=== PATIENT | female | born 1965 | race Asian ===

== ENCOUNTER 2024-09-06 06:48 | Inpatient (IN) | payer MEDICARE ==
[2024-09-06] VITALS (28 sets, daily range): BP systolic 81–126; BP diastolic 59–97; TEMP 97.8–98.2; O2SAT 92–100
[~2024-09-06] VITALS: Ht 160 cm; Wt 65.6 kg
[2024-09-06] MEDS: IV NORMAL SALINE 500 ML BAG IV ONE ×2 (07:16→09:35)
[2024-09-06 07:29] LABS: BASOPHILS % (AUTO) 0.2 % (0.0-2.0); EOSINOPHILS # (AUTO) 0.1 K/uL (0.0-0.7); EOSINOPHILS % (AUTO) 1.3 % (0.0-7.0); HEMATOCRIT 28.3 % (31.2-41.9); HEMOGLOBIN 9.2 g/dL (10.9-14.3); LYMPHOCYTES # (AUTO) 0.6 K/uL (0.8-4.8); LYMPHOCYTES % (AUTO) 5.7 % (20.5-51.5); MEAN CORPUSCULAR HEMOGLOBIN 31.9 uug (24.7-32.8); MEAN CORPUSCULAR HGB CONC 33 g/dL (32.3-35.6); MEAN CORPUSCULAR VOLUME 98.2 fL (75.5-95.3); MONOCYTES # (AUTO) 0.8 K/uL (0.1-1.30); MONOCYTES % (AUTO) 7.4 % (0.0-11.0); NEUTROPHILS # (AUTO) 9.1 K/uL (1.8-8.9); NEUTROPHILS % (AUTO) 85.4 % (38.5-71.5); PLATELET COUNT (AUTO) 144 K/uL (179-408); RED BLOOD CELL COUNT(AUTO) 2.89 MIL/uL (3.63-4.92); RED CELL DISTRIBUTION WIDTH 21.2 % (12.3-17.7); WHITE BLOOD COUNT (AUTO) 10.7 K/uL (3.8-11.8)
[2024-09-06] MEDS ORDERED: HEPA500034 SQ (07:29)
[2024-09-06] MEDS ORDERED: MORPHINE 20MG/ML PO (07:29)
[2024-09-06] MEDS ORDERED: ACET-2154 PO (07:29)
[2024-09-06] MEDS ORDERED: PANT40TA49 PO (07:29)
[2024-09-06] MEDS ORDERED: METO-358 PO (07:29)
[2024-09-06] MEDS ORDERED: GABA-532 PO (07:29)
[2024-09-06] MEDS ORDERED: ZOFRAN ODT PO (07:29)
[2024-09-06] MEDS ORDERED: MIDO5TAB5 PO (07:29)
[2024-09-06 07:49] LABS: ALANINE AMINOTRANSFERASE 56 U/L (14-59); ALBUMIN 3.4 g/dL (3.4-5.0); ALKALINE PHOSPHATASE 248 U/L (50-136); ASPARTATE AMINOTRANSFERASE 62 U/L (15-37); BILIRUBIN,DIRECT 1.3 mg/dL (0.0-0.2); BILIRUBIN,TOTAL 1.9 mg/dL (0.2-1.0); CALCIUM 10.4 mg/dL (8.5-10.1); CARBON DIOXIDE 33 mmol/L (21-32); CHLORIDE 93 mmol/L (98-107); GLUCOSE 106 mg/dL (74-106); POTASSIUM 3.1 mmol/L (3.5-5.1); SODIUM SERUM 143 mmol/L (136-145); TOTAL PROTEIN, SERUM 9.5 g/dL (6.4-8.2); UREA NITROGEN, BLOOD 52 mg/dL (7-18)
[2024-09-06 07:51] LABS: DIFFERENTIAL COMMENT 1
[2024-09-06] MEDS ORDERED: VANCOMYCIN IV 200 ML ONE (08:08)
[2024-09-06] MEDS: VANCOMYCIN IV 1,000 MG in IV DEXTROSE 5% 250 ML IV ONE (08:31)
[2024-09-06] MEDS ORDERED: HEPA500034 SUBCUT (09:04)
[2024-09-06] MEDS ORDERED: NOREPINEPHRINE BITARTRATE 4 MG/4 ML VIAL IV ONE (09:13)
[2024-09-06] MEDS ORDERED: NOREPINEPHRINE 8MG/NS 250ML 250 ML IV ONE (09:14)
[2024-09-06] MEDS ORDERED: NOREPINEPHRINE BITARTRATE 32 MG in IV NORMAL SALINE 218 ML IV PRN (09:15)
[2024-09-06] MEDS: NOREPINEPHRINE BITARTRATE 32 MG in IV NORMAL SALINE 218 ML IV PRN (10:31)
[2024-09-06] MEDS: NOREPINEPHRINE 8MG/NS 250ML 250 ML IV STA (10:36)
[2024-09-06] MEDS: MIDODRINE HCL 5 MG TABLET PO SCH (13:00)
[2024-09-06] MEDS ORDERED: ONDANSETRON 4 MG/2 ML VIAL IV PRN (13:00)
[2024-09-06] MEDS ORDERED: ACETAMINOPHEN 325 MG TABLET-SA PATIENTS-PAIN ONLY PO PRN (13:00)
[2024-09-06] MEDS: ONDANSETRON 4 MG/2 ML VIAL ONE (13:23)
[2024-09-06] MEDS: ONDANSETRON 4 MG/2 ML VIAL IV PRN (13:37)
[2024-09-06] MEDS: POTASSIUM CHLORIDE 20 MEQ in IV D5/ 0.9% NACL 1,000 ML IV PRN (14:38)
[2024-09-06] MEDS: MORPHINE SULFATE 2 MG/1 ML DISP.SYRIN IV PRN (14:43)
[2024-09-06] MEDS ORDERED: VANCOMYCIN IV 500 MG in IV DEXTROSE 5% 100 ML IV PRN (14:45)
[2024-09-06] MEDS: NOREPINEPHRINE 8MG/NS 250ML 250 ML IV PRN (14:51)
[2024-09-06] MEDS: MEROPENEM 500 MG in IV NORMAL SALINE 50 ML IV SCH (15:16)
[2024-09-06 16:08] LABS: HIV-1 p24 ANTIGEN NON REACTIVE (NONREACTIVE); HIV-1/2 ANTIBODY NON REACTIVE (NONREACTIVE)
[2024-09-06] MEDS: GABAPENTIN 100 MG CAPSULE PO SCH (16:44)
[2024-09-06] MEDS ORDERED: METO-357 PO (16:51)
[2024-09-07] VITALS (32 sets, daily range): BP systolic 85–121; BP diastolic 57–87; TEMP 97.4–98.1; O2SAT 97–100
[2024-09-07] MEDS ORDERED: IV D5W-0.45% NS +20 KCL 0 ML IV ONE (05:25)
[2024-09-07] MEDS ORDERED: IV DEXTROSE 5%-0.9%NS+20MeqKCL 1,000 ML IV ONE (05:29)
[2024-09-07] MEDS: PANTOPRAZOLE SODIUM 40 MG TABLET.DR PO SCH (06:38)
[2024-09-07] MEDS ORDERED: REMEDY ESSENTIAL ZINC PASTE 113 GM TOP PRN (09:45)
[2024-09-07 10:00] LABS: BASOPHILS % (AUTO) 0.3 % (0.0-2.0); EOSINOPHILS # (AUTO) 0.3 K/uL (0.0-0.7); EOSINOPHILS % (AUTO) 2.8 % (0.0-7.0); HEMATOCRIT 26.4 % (31.2-41.9); HEMOGLOBIN 8.7 g/dL (10.9-14.3); LYMPHOCYTES # (AUTO) 0.9 K/uL (0.8-4.8); LYMPHOCYTES % (AUTO) 9.8 % (20.5-51.5); MEAN CORPUSCULAR HEMOGLOBIN 32.9 uug (24.7-32.8); MEAN CORPUSCULAR HGB CONC 33 g/dL (32.3-35.6); MEAN CORPUSCULAR VOLUME 100.1 fL (75.5-95.3); MONOCYTES # (AUTO) 0.9 K/uL (0.1-1.30); MONOCYTES % (AUTO) 9.2 % (0.0-11.0); NEUTROPHILS # (AUTO) 7.3 K/uL (1.8-8.9); NEUTROPHILS % (AUTO) 77.9 % (38.5-71.5); PLATELET COUNT (AUTO) 149 K/uL (179-408); RED BLOOD CELL COUNT(AUTO) 2.64 MIL/uL (3.63-4.92); RED CELL DISTRIBUTION WIDTH 21.3 % (12.3-17.7); WHITE BLOOD COUNT (AUTO) 9.4 K/uL (3.8-11.8)
[2024-09-07 10:02] LABS: DIFFERENTIAL COMMENT 1
[2024-09-07 10:19] LABS: CALCIUM 10.6 mg/dL (8.5-10.1); CREATININE 6.2 mg/dL (0.6-1.3); POTASSIUM 3.4 mmol/L (3.5-5.1)
[2024-09-07 10:44] LABS: ALBUMIN 2.9 g/dL (3.4-5.0); PHOSPHOROUS 7.7 mg/dL (2.5-4.9)
[2024-09-07 10:45] LABS: MAGNESIUM 2.1 mg/dL (1.8-2.4); TOTAL PROTEIN, SERUM 8.6 g/dL (6.4-8.2)
[2024-09-07] MEDS ORDERED: TPN/PPN PER PHARMACY IV PRN (12:30)
[2024-09-07] MEDS: PHENYLEPHRINE IV 100 MG in IV NORMAL SALINE 240 ML IV PRN (16:04)
[2024-09-07] MEDS ORDERED: [UNRECOGNIZED DRUG - OTHER] IV SCH (16:45)
[2024-09-07] MEDS ORDERED: MVI ADULT IV SCH (16:45)
[2024-09-07] MEDS: VANCOMYCIN IV 1,000 MG in IV DEXTROSE 5% 250 ML IV ONE (18:01)
[2024-09-07] MEDS: TPN BAG #1 IV ONE (18:02)
[2024-09-07] MEDS: REMEDY ESSENTIAL ZINC PASTE 113 GM TOP SCH (20:31)
[2024-09-07] MEDS: MEROPENEM 500 MG in IV NORMAL SALINE 50 ML IV SCH (20:31)
[2024-09-08] VITALS (55 sets, daily range): BP systolic 87–126; BP diastolic 62–88; TEMP 97.5–98.3; O2SAT 94–100
[2024-09-08 06:29] LABS: BASOPHILS % (AUTO) 0.3 % (0.0-2.0); EOSINOPHILS # (AUTO) 0.3 K/uL (0.0-0.7); EOSINOPHILS % (AUTO) 2.2 % (0.0-7.0); HEMATOCRIT 25.2 % (31.2-41.9); HEMOGLOBIN 8.3 g/dL (10.9-14.3); LYMPHOCYTES # (AUTO) 0.9 K/uL (0.8-4.8); LYMPHOCYTES % (AUTO) 8.2 % (20.5-51.5); MEAN CORPUSCULAR HEMOGLOBIN 32.5 uug (24.7-32.8); MEAN CORPUSCULAR HGB CONC 33 g/dL (32.3-35.6); MEAN CORPUSCULAR VOLUME 99.3 fL (75.5-95.3); NEUTROPHILS # (AUTO) 9.3 K/uL (1.8-8.9); NEUTROPHILS % (AUTO) 80.3 % (38.5-71.5); PLATELET COUNT (AUTO) 153 K/uL (179-408); RED BLOOD CELL COUNT(AUTO) 2.54 MIL/uL (3.63-4.92); RED CELL DISTRIBUTION WIDTH 20.4 % (12.3-17.7); WHITE BLOOD COUNT (AUTO) 11.5 K/uL (3.8-11.8)
[2024-09-08 06:42] LABS: CREATININE 3.8 mg/dL (0.6-1.3); POTASSIUM 2.9 mmol/L (3.5-5.1)
[2024-09-08 06:44] LABS: MAGNESIUM 1.5 mg/dL (1.8-2.4); PHOSPHOROUS 4.5 mg/dL (2.5-4.9)
[2024-09-08 07:11] LABS: DIFFERENTIAL COMMENT 1
[2024-09-08 08:06] LABS: HEPATITIS B CORE AB, TOTAL Negative (Negative); HEPATITIS B SURFACE AG Negative (Negative); HEPATITIS C VIRUS ANTIBODY Non Reactive (Non Reactive)
[2024-09-08] MEDS: TPN BAG #2 IV SCH (08:58)
[2024-09-08] MEDS: IV FAT EMULSIONS 20% 250 ML IV ONE (12:53)
[2024-09-08] MEDS: TPN BAG #3 IV SCH (23:23)
[2024-09-09] VITALS (60 sets, daily range): BP systolic 78–140; BP diastolic 55–93; TEMP 97.8–98.5; O2SAT 94–100
[2024-09-09 06:53] LABS: BASOPHILS # (AUTO) 0.1 K/UL (0.0-0.2); BASOPHILS % (AUTO) 0.6 % (0.0-2.0); DIFFERENTIAL COMMENT 0; EOSINOPHILS # (AUTO) 0.3 K/uL (0.0-0.7); EOSINOPHILS % (AUTO) 2.1 % (0.0-7.0); HEMATOCRIT 23.6 % (31.2-41.9); HEMOGLOBIN 8.1 g/dL (10.9-14.3); LYMPHOCYTES # (AUTO) 1.3 K/uL (0.8-4.8); LYMPHOCYTES % (AUTO) 9.8 % (20.5-51.5); MEAN CORPUSCULAR HGB CONC 34 g/dL (32.3-35.6); MEAN CORPUSCULAR VOLUME 98.9 fL (75.5-95.3); MONOCYTES % (AUTO) 7.5 % (0.0-11.0); NEUTROPHILS # (AUTO) 10.4 K/uL (1.8-8.9); PLATELET COUNT (AUTO) 149 K/uL (179-408); RED CELL DISTRIBUTION WIDTH 19.8 % (12.3-17.7); WHITE BLOOD COUNT (AUTO) 12.9 K/uL (3.8-11.8)
[2024-09-09 07:05] LABS: CALCIUM 9.3 mg/dL (8.5-10.1); CREATININE 5.4 mg/dL (0.6-1.3); MAGNESIUM 1.9 mg/dL (1.8-2.4); PHOSPHOROUS 4.1 mg/dL (2.5-4.9); POTASSIUM 3.5 mmol/L (3.5-5.1)
[2024-09-09 07:11] LABS: RED BLOOD CELL COUNT(AUTO) 2.38 MIL/uL (3.63-4.92)
[2024-09-09] MEDS: ALBUMIN HUMAN 25% 100 ML IV PRN (13:35)
[2024-09-09] MEDS: TPN BAG #4 IV SCH (14:17)
[2024-09-09] MEDS ORDERED: MEROPENEM 500MG/NS 50ML PB ***ER PYXIS ONLY IV ONE (21:08)
[2024-09-10] VITALS (65 sets, daily range): BP systolic 90–120; BP diastolic 67–93; TEMP 97.2–98.6; O2SAT 98–100
[2024-09-10] MEDS: TPN BAG #5 IV SCH (02:26)
[2024-09-10 05:14] LABS: BASOPHILS % (AUTO) 0.4 % (0.0-2.0); EOSINOPHILS # (AUTO) 0.2 K/uL (0.0-0.7); EOSINOPHILS % (AUTO) 1.3 % (0.0-7.0); HEMATOCRIT 25.1 % (31.2-41.9); HEMOGLOBIN 8.2 g/dL (10.9-14.3); LYMPHOCYTES % (AUTO) 8.3 % (20.5-51.5); MEAN CORPUSCULAR HEMOGLOBIN 32.3 uug (24.7-32.8); MEAN CORPUSCULAR HGB CONC 33 g/dL (32.3-35.6); MEAN CORPUSCULAR VOLUME 99.2 fL (75.5-95.3); MONOCYTES # (AUTO) 1.1 K/uL (0.1-1.30); MONOCYTES % (AUTO) 8.4 % (0.0-11.0); NEUTROPHILS # (AUTO) 10.2 K/uL (1.8-8.9); NEUTROPHILS % (AUTO) 81.6 % (38.5-71.5); PLATELET COUNT (AUTO) 154 K/uL (179-408); RED BLOOD CELL COUNT(AUTO) 2.53 MIL/uL (3.63-4.92); RED CELL DISTRIBUTION WIDTH 20.9 % (12.3-17.7); WHITE BLOOD COUNT (AUTO) 12.5 K/uL (3.8-11.8)
[2024-09-10 05:50] LABS: ALBUMIN 2.8 g/dL (3.4-5.0); BILIRUBIN,TOTAL 1.7 mg/dL (0.2-1.0); CALCIUM 9.8 mg/dL (8.5-10.1); CREATININE 3.4 mg/dL (0.6-1.3); MAGNESIUM 1.9 mg/dL (1.8-2.4); PHOSPHOROUS 2.8 mg/dL (2.5-4.9); POTASSIUM 3.8 mmol/L (3.5-5.1); TOTAL PROTEIN, SERUM 8.3 g/dL (6.4-8.2)
[2024-09-10] MEDS: IV FAT EMULSIONS 20% 250 ML IV ONE (15:50)
[2024-09-10] MEDS ORDERED: ONDANSETRON 4 MG/2 ML VIAL IV PRN (17:30)
[2024-09-10] MEDS: ONDANSETRON INJ 8 MG in IV NORMAL SALINE 50 ML IV PRN (17:37)
[2024-09-10] MEDS: TPN BAG #6 IV SCH (18:28)
[2024-09-10] MEDS ORDERED: TPN IV SCH (18:30)
[2024-09-11] VITALS (49 sets, daily range): BP systolic 92–122; BP diastolic 65–90; TEMP 97–97.7; O2SAT 96–100
[2024-09-11 02:06] LABS: HEPATITIS B SURFACE AB, QUAL Reactive (.); HEPATITIS B SURFACE AG Negative (Negative)
[2024-09-11] MEDS ORDERED: DEXTROSE 50% 50 ML DISP.SYRIN IV PRN (08:15)
[2024-09-11] MEDS ORDERED: INSULIN REGULAR, HUMAN 1000 UNIT/10 ML VIAL SQ PRN (08:15)
[2024-09-11 08:34] LABS: CALCIUM 10.1 mg/dL (8.5-10.1); CREATININE 5.3 mg/dL (0.6-1.3); MAGNESIUM 2.5 mg/dL (1.8-2.4); PHOSPHOROUS 2.4 mg/dL (2.5-4.9); POTASSIUM 3.5 mmol/L (3.5-5.1)
[2024-09-11] MEDS: TPN BAG # 7 IV SCH (09:24)
[2024-09-11] MEDS: SODIUM PHOSPHATE MM 15 MMOL in IV NORMAL SALINE 250 ML IV ONE (10:52)
[2024-09-11] MEDS: BLOOD SUGAR DIAGNOSTIC 1 EACH STRIP VI SCH (11:35)
[2024-09-12] VITALS (27 sets, daily range): BP systolic 89–119; BP diastolic 67–88; TEMP 97.7–98.4; O2SAT 98–100
[2024-09-12] MEDS: TPN BAG #8 IV SCH ×2 (00:23→08:50)
[2024-09-12 05:01] LABS: BASOPHILS % (AUTO) 0.3 % (0.0-2.0); EOSINOPHILS # (AUTO) 0.1 K/uL (0.0-0.7); EOSINOPHILS % (AUTO) 0.8 % (0.0-7.0); HEMOGLOBIN 7.8 g/dL (10.9-14.3); LYMPHOCYTES # (AUTO) 0.8 K/uL (0.8-4.8); LYMPHOCYTES % (AUTO) 6.8 % (20.5-51.5); MEAN CORPUSCULAR HEMOGLOBIN 31.6 uug (24.7-32.8); MEAN CORPUSCULAR HGB CONC 33 g/dL (32.3-35.6); MEAN CORPUSCULAR VOLUME 97.3 fL (75.5-95.3); MONOCYTES # (AUTO) 0.9 K/uL (0.1-1.30); MONOCYTES % (AUTO) 7.6 % (0.0-11.0); NEUTROPHILS # (AUTO) 9.6 K/uL (1.8-8.9); NEUTROPHILS % (AUTO) 84.5 % (38.5-71.5); PLATELET COUNT (AUTO) 137 K/uL (179-408); RED CELL DISTRIBUTION WIDTH 19.8 % (12.3-17.7); WHITE BLOOD COUNT (AUTO) 11.3 K/uL (3.8-11.8)
[2024-09-12 05:24] LABS: RED BLOOD CELL COUNT(AUTO) 2.47 MIL/uL (3.63-4.92)
[2024-09-12 05:44] LABS: ALBUMIN 2.3 g/dL (3.4-5.0); BILIRUBIN,DIRECT 1.1 mg/dL (0.0-0.2); BILIRUBIN,TOTAL 1.5 mg/dL (0.2-1.0); TOTAL PROTEIN, SERUM 7.8 g/dL (6.4-8.2)
[2024-09-12 05:52] LABS: CALCIUM 9.2 mg/dL (8.5-10.1); CREATININE 3.1 mg/dL (0.6-1.3); PHOSPHOROUS 2.2 mg/dL (2.5-4.9)
[2024-09-12] MEDS: POTASSIUM CHLORIDE 50 ML IV SCH (07:55)
[2024-09-12] MEDS: ONDANSETRON 4 MG/2 ML VIAL IV PRN (11:02)
[2024-09-12] MEDS: POTASSIUM PHOSPHATE MM 15 MMOL in IV NORMAL SALINE 250 ML IV ONE (13:01)
[2024-09-12] MEDS: IV FAT EMULSIONS 20% 250 ML IV ONE (15:12)
[2024-09-13] VITALS (27 sets, daily range): BP systolic 82–133; BP diastolic 67–93; TEMP 97.6–98.2; O2SAT 99–100
[2024-09-13 05:02] LABS: BASOPHILS % (AUTO) 0.3 % (0.0-2.0); EOSINOPHILS # (AUTO) 0.2 K/uL (0.0-0.7); EOSINOPHILS % (AUTO) 1.8 % (0.0-7.0); HEMATOCRIT 26.4 % (31.2-41.9); HEMOGLOBIN 8.7 g/dL (10.9-14.3); LYMPHOCYTES % (AUTO) 10.2 % (20.5-51.5); MEAN CORPUSCULAR HEMOGLOBIN 32.4 uug (24.7-32.8); MEAN CORPUSCULAR HGB CONC 33 g/dL (32.3-35.6); MEAN CORPUSCULAR VOLUME 98.4 fL (75.5-95.3); MONOCYTES # (AUTO) 0.9 K/uL (0.1-1.30); MONOCYTES % (AUTO) 9.8 % (0.0-11.0); NEUTROPHILS # (AUTO) 7.3 K/uL (1.8-8.9); NEUTROPHILS % (AUTO) 77.9 % (38.5-71.5); PLATELET COUNT (AUTO) 167 K/uL (179-408); RED BLOOD CELL COUNT(AUTO) 2.69 MIL/uL (3.63-4.92); WHITE BLOOD COUNT (AUTO) 9.4 K/uL (3.8-11.8)
[2024-09-13 05:18] LABS: CALCIUM 9.7 mg/dL (8.5-10.1); CREATININE 4.7 mg/dL (0.6-1.3); MAGNESIUM 1.9 mg/dL (1.8-2.4); PHOSPHOROUS 4.7 mg/dL (2.5-4.9); POTASSIUM 4.3 mmol/L (3.5-5.1)
[2024-09-13] MEDS: TPN BAG #9 IV SCH (05:34)
[2024-09-14] VITALS (12 sets, daily range): BP systolic 88–114; BP diastolic 65–94; TEMP 97.7–98; O2SAT 95–100
[2024-09-14 05:00] LABS: BASOPHILS % (AUTO) 0.4 % (0.0-2.0); EOSINOPHILS # (AUTO) 0.1 K/uL (0.0-0.7); EOSINOPHILS % (AUTO) 1.3 % (0.0-7.0); HEMATOCRIT 26.9 % (31.2-41.9); HEMOGLOBIN 8.8 g/dL (10.9-14.3); LYMPHOCYTES # (AUTO) 0.8 K/uL (0.8-4.8); LYMPHOCYTES % (AUTO) 10.3 % (20.5-51.5); MEAN CORPUSCULAR HEMOGLOBIN 31.8 uug (24.7-32.8); MEAN CORPUSCULAR HGB CONC 33 g/dL (32.3-35.6); MEAN CORPUSCULAR VOLUME 96.7 fL (75.5-95.3); MONOCYTES # (AUTO) 0.8 K/uL (0.1-1.30); MONOCYTES % (AUTO) 10.6 % (0.0-11.0); NEUTROPHILS # (AUTO) 5.8 K/uL (1.8-8.9); NEUTROPHILS % (AUTO) 77.4 % (38.5-71.5); PLATELET COUNT (AUTO) 160 K/uL (179-408); RED BLOOD CELL COUNT(AUTO) 2.78 MIL/uL (3.63-4.92); RED CELL DISTRIBUTION WIDTH 19.3 % (12.3-17.7); WHITE BLOOD COUNT (AUTO) 7.4 K/uL (3.8-11.8)
[2024-09-14 05:34] LABS: BILIRUBIN,DIRECT 1.1 mg/dL (0.0-0.2); BILIRUBIN,TOTAL 1.6 mg/dL (0.2-1.0); CALCIUM 9.8 mg/dL (8.5-10.1); CREATININE 3.5 mg/dL (0.6-1.3); PHOSPHOROUS 3.6 mg/dL (2.5-4.9); POTASSIUM 2.9 mmol/L (3.5-5.1)
[2024-09-14] MEDS: POTASSIUM CHLORIDE 50 ML IV SCH (09:20)
[2024-09-14] MEDS: TPN BAG # 10 IV SCH (13:44)
[2024-09-14] MEDS: IV FAT EMULSIONS 20% 250 ML IV ONE (17:08)
[2024-09-15] VITALS (9 sets, daily range): BP systolic 91–146; BP diastolic 57–82; TEMP 97.6–98.3; O2SAT 94–100
[2024-09-15] MEDS: BLOOD SUGAR DIAGNOSTIC 1 EACH STRIP VI SCH (06:04)
[2024-09-15 07:06] LABS: BASOPHILS # (AUTO) 0.1 K/UL (0.0-0.2); BASOPHILS % (AUTO) 0.6 % (0.0-2.0); EOSINOPHILS # (AUTO) 0.2 K/uL (0.0-0.7); EOSINOPHILS % (AUTO) 2.9 % (0.0-7.0); HEMATOCRIT 25.3 % (31.2-41.9); HEMOGLOBIN 8.8 g/dL (10.9-14.3); LYMPHOCYTES # (AUTO) 1.1 K/uL (0.8-4.8); MEAN CORPUSCULAR HEMOGLOBIN 33.4 uug (24.7-32.8); MEAN CORPUSCULAR HGB CONC 35 g/dL (32.3-35.6); MEAN CORPUSCULAR VOLUME 96.2 fL (75.5-95.3); MONOCYTES # (AUTO) 0.9 K/uL (0.1-1.30); NEUTROPHILS # (AUTO) 6.3 K/uL (1.8-8.9); NEUTROPHILS % (AUTO) 72.5 % (38.5-71.5); PLATELET COUNT (AUTO) 213 K/uL (179-408); RED BLOOD CELL COUNT(AUTO) 2.63 MIL/uL (3.63-4.92); WHITE BLOOD COUNT (AUTO) 8.6 K/uL (3.8-11.8)
[2024-09-15 07:13] LABS: CALCIUM 10.3 mg/dL (8.5-10.1); CREATININE 5.3 mg/dL (0.6-1.3); MAGNESIUM 2.1 mg/dL (1.8-2.4); PHOSPHOROUS 4.6 mg/dL (2.5-4.9); POTASSIUM 2.9 mmol/L (3.5-5.1)
[2024-09-15 07:33] LABS: DIFFERENTIAL COMMENT 1
[2024-09-15] MEDS: POTASSIUM CHLORIDE 50 ML IV SCH ×2 (10:38→21:27)
[2024-09-15] MEDS: ALBUMIN HUMAN 25% 50 ML IV PRN (14:51)
[2024-09-15 17:31] LABS: BASOPHILS % (AUTO) 0.4 % (0.0-2.0)
[2024-09-15] MEDS: TPN IV SCH (17:38)
[2024-09-15 18:08] LABS: DIFFERENTIAL COMMENT 0; EOSINOPHILS # (AUTO) 0.2 K/uL (0.0-0.7); EOSINOPHILS % (AUTO) 2.2 % (0.0-7.0); HEMATOCRIT 24.5 % (31.2-41.9); HEMOGLOBIN 8.3 g/dL (10.9-14.3); LYMPHOCYTES # (AUTO) 0.8 K/uL (0.8-4.8); LYMPHOCYTES % (AUTO) 11.2 % (20.5-51.5); MEAN CORPUSCULAR HEMOGLOBIN 32.3 uug (24.7-32.8); MEAN CORPUSCULAR HGB CONC 34 g/dL (32.3-35.6); MEAN CORPUSCULAR VOLUME 95.9 fL (75.5-95.3); MONOCYTES # (AUTO) 0.7 K/uL (0.1-1.30); MONOCYTES % (AUTO) 9.2 % (0.0-11.0); NEUTROPHILS # (AUTO) 5.7 K/uL (1.8-8.9); PLATELET COUNT (AUTO) 194 K/uL (179-408); RED BLOOD CELL COUNT(AUTO) 2.56 MIL/uL (3.63-4.92); RED CELL DISTRIBUTION WIDTH 19.3 % (12.3-17.7); WHITE BLOOD COUNT (AUTO) 7.5 K/uL (3.8-11.8)
[2024-09-15 18:17] LABS: CALCIUM 8.1 mg/dL (8.5-10.1); CREATININE 1.9 mg/dL (0.6-1.3)
[2024-09-15 18:24] LABS: POTASSIUM 16.7 mmol/L (3.5-5.1)
[2024-09-15 18:29] LABS: MAGNESIUM 1.2 mg/dL (1.8-2.4)
[2024-09-15 18:38] LABS: PHOSPHOROUS 1.4 mg/dL (2.5-4.9)
[2024-09-15] MEDS ORDERED: POTASSIUM CHLORIDE 50 ML IV SCH (19:45)
[2024-09-15 20:25] LABS: ANISOCYTOSIS 2+; BAND % (MANUAL) 10 % (0-10); EOSINOPHILS % (MANUAL) 3 % (0-8); LYMPHOCYTES % (MANUAL) 10 % (20-40); METAMYELOCYTES % 1 % (0-1); MONOCYTES % (MANUAL) 7 % (2-10); NEUTROPHILS % (MANUAL) 69 % (42-75); PLATELET ESTIMATE ADEQUATE
[2024-09-15 20:26] LABS: TEAR DROP CELLS 1+
[2024-09-15] MEDS: MIDODRINE HCL 5 MG TABLET PO ONE (21:18)
[2024-09-15] MEDS: ACETAMINOPHEN 325 MG TABLET PO PRN (23:46)
[2024-09-16] VITALS (8 sets, daily range): BP systolic 94–106; BP diastolic 61–72; TEMP 97.4–97.9; O2SAT 98–100
[2024-09-16 06:59] LABS: BASOPHILS % (AUTO) 0.6 % (0.0-2.0); EOSINOPHILS # (AUTO) 0.1 K/uL (0.0-0.7); EOSINOPHILS % (AUTO) 1.8 % (0.0-7.0); HEMATOCRIT 24.3 % (31.2-41.9); HEMOGLOBIN 8.1 g/dL (10.9-14.3); LYMPHOCYTES # (AUTO) 0.9 K/uL (0.8-4.8); LYMPHOCYTES % (AUTO) 10.6 % (20.5-51.5); MEAN CORPUSCULAR HEMOGLOBIN 32.2 uug (24.7-32.8); MEAN CORPUSCULAR HGB CONC 33 g/dL (32.3-35.6); MEAN CORPUSCULAR VOLUME 96.8 fL (75.5-95.3); MONOCYTES % (AUTO) 12.9 % (0.0-11.0); NEUTROPHILS # (AUTO) 5.9 K/uL (1.8-8.9); NEUTROPHILS % (AUTO) 74.1 % (38.5-71.5); PLATELET COUNT (AUTO) 192 K/uL (179-408); RED BLOOD CELL COUNT(AUTO) 2.51 MIL/uL (3.63-4.92); RED CELL DISTRIBUTION WIDTH 19.4 % (12.3-17.7)
[2024-09-16 07:21] LABS: CREATININE 3.5 mg/dL (0.6-1.3); MAGNESIUM 1.9 mg/dL (1.8-2.4); PHOSPHOROUS 3.2 mg/dL (2.5-4.9); POTASSIUM 3.5 mmol/L (3.5-5.1)
[2024-09-16 07:23] LABS: DIFFERENTIAL COMMENT 1
[2024-09-16] MEDS: IV NORMAL SALINE 250 ML IV ONE (08:39)
[2024-09-16 08:56] LABS: BAND % (MANUAL) 4 % (0-10); LYMPHOCYTES % (MANUAL) 21 % (20-40); METAMYELOCYTES % 3 % (0-1); MONOCYTES % (MANUAL) 4 % (2-10); MYELOCYTES % 1 % (0-0); NEUTROPHILS % (MANUAL) 67 % (42-75)
[2024-09-16 08:57] LABS: ANISOCYTOSIS 1+; PLATELET ESTIMATE ADEQUATE
[2024-09-16] MEDS: PANTOPRAZOLE SODIUM 40 MG VIAL IV SCH (09:22)
[2024-09-16] MEDS: SODIUM PHOSPHATE MM 7.5 MMOL in IV NORMAL SALINE 100 ML IV ONE (11:45)
[2024-09-16] MEDS: MIDODRINE HCL 5 MG TABLET PO SCH (17:49)
[2024-09-16] MEDS: TPN IV SCH (23:22)
[2024-09-17] VITALS (7 sets, daily range): BP systolic 105–114; BP diastolic 56–76; TEMP 97.6–97.9; O2SAT 95–100
[2024-09-17 07:42] LABS: BASOPHILS # (AUTO) 0.1 K/UL (0.0-0.2); BASOPHILS % (AUTO) 0.8 % (0.0-2.0); EOSINOPHILS # (AUTO) 0.3 K/uL (0.0-0.7); EOSINOPHILS % (AUTO) 3.6 % (0.0-7.0); HEMATOCRIT 26.6 % (31.2-41.9); HEMOGLOBIN 8.8 g/dL (10.9-14.3); LYMPHOCYTES # (AUTO) 1.1 K/uL (0.8-4.8); LYMPHOCYTES % (AUTO) 12.9 % (20.5-51.5); MEAN CORPUSCULAR HGB CONC 33 g/dL (32.3-35.6); MEAN CORPUSCULAR VOLUME 97.1 fL (75.5-95.3); MONOCYTES # (AUTO) 0.8 K/uL (0.1-1.30); MONOCYTES % (AUTO) 10.3 % (0.0-11.0); NEUTROPHILS # (AUTO) 5.9 K/uL (1.8-8.9); NEUTROPHILS % (AUTO) 72.4 % (38.5-71.5); PLATELET COUNT (AUTO) 250 K/uL (179-408); RED BLOOD CELL COUNT(AUTO) 2.74 MIL/uL (3.63-4.92); RED CELL DISTRIBUTION WIDTH 19.1 % (12.3-17.7); WHITE BLOOD COUNT (AUTO) 8.2 K/uL (3.8-11.8)
[2024-09-17 07:56] LABS: BILIRUBIN,DIRECT 1.4 mg/dL (0.0-0.2); BILIRUBIN,TOTAL 1.9 mg/dL (0.2-1.0); CALCIUM 10.5 mg/dL (8.5-10.1); CREATININE 5.3 mg/dL (0.6-1.3); MAGNESIUM 1.9 mg/dL (1.8-2.4); PHOSPHOROUS 4.2 mg/dL (2.5-4.9)
[2024-09-17 08:04] LABS: DIFFERENTIAL COMMENT 1
[2024-09-17] MEDS ORDERED: MIDO10TA PO (09:09)
[2024-09-17 10:16] LABS: ANISOCYTOSIS 2+; BAND % (MANUAL) 3 % (0-10); EOSINOPHILS % (MANUAL) 2 % (0-8); LYMPHOCYTES % (MANUAL) 13 % (20-40); MONOCYTES % (MANUAL) 11 % (2-10); MYELOCYTES % 2 % (0-0); NEUTROPHILS % (MANUAL) 69 % (42-75); PLATELET ESTIMATE ADEQUATE
[2024-09-17] MEDS ORDERED: METH-806 PO (10:27)
[2024-09-17] MEDS ORDERED: METHOCARBAMOL 500 MG TABLET PO PRN (10:30)
[2024-09-17] MEDS: IV FAT EMULSIONS 20% 250 ML IV ONE (17:26)
[2024-09-17] MEDS: TPN IV SCH (21:51)
[2024-09-18] VITALS (7 sets, daily range): BP systolic 91–117; BP diastolic 66–75; TEMP 97.8–98.7; O2SAT 91–100
[2024-09-18 07:21] LABS: CALCIUM 10.8 mg/dL (8.5-10.1); CREATININE 4.1 mg/dL (0.6-1.3); MAGNESIUM 2.1 mg/dL (1.8-2.4); PHOSPHOROUS 3.1 mg/dL (2.5-4.9)
[2024-09-18] MEDS: POTASSIUM CHLORIDE 50 ML IV SCH (10:22)
== END 2024-09-18 16:20 | disposition home health service (06) | DRG 871 ==
LOC: ER 06:53 → CCU 10:39 → TELE3 09-14 15:25
PROVIDERS: ADMIT Internal Medicine; ATTEND Internal Medicine
PROC: 5A1D70Z Performance of Urinary Filtration, Intermittent, Less than 6 Hours Per Day (ICD-10-PCS; principal; 2024-09-08)
DX: A41.9 Sepsis, unspecified organism (principal); J18.9 Pneumonia, unspecified organism; J69.0 Pneumonitis due to inhalation of food and vomit; N18.6 End stage renal disease; C78.6 Secondary malignant neoplasm of retroperitoneum and peritoneum; I12.0 Hypertensive chronic kidney disease with stage 5 chronic kidney disease or end stage renal disease; J91.8 Pleural effusion in other conditions classified elsewhere; E46 Unspecified protein-calorie malnutrition; J98.11 Atelectasis; I95.3 Hypotension of hemodialysis; Z66 Do not resuscitate; Z99.2 Dependence on renal dialysis; D63.8 Anemia in other chronic diseases classified elsewhere; E87.6 Hypokalemia; E83.52 Hypercalcemia; R79.89 Other specified abnormal findings of blood chemistry; R00.0 Tachycardia, unspecified; Z88.8 Allergy status to other drugs, medicaments and biological substances; Z87.891 Personal history of nicotine dependence; Z88.1 Allergy status to other antibiotic agents; Z91.040 Latex allergy status; Z93.1 Gastrostomy status; Z92.21 Personal history of antineoplastic chemotherapy; Z90.49 Acquired absence of other specified parts of digestive tract; Z90.710 Acquired absence of both cervix and uterus; Z90.722 Acquired absence of ovaries, bilateral; Z85.43 Personal history of malignant neoplasm of ovary; Z68.25 Body mass index [BMI] 25.0-25.9, adult; E88.09 Other disorders of plasma-protein metabolism, not elsewhere classified; Z87.19 Personal history of other diseases of the digestive system; R59.1 Generalized enlarged lymph nodes
CPT/HCPCS: 36415; 70030-TC; 71045; 74018; 83605; 83735; 84100; 84132; 84478; 84484; 85025; 86704; 86706; 86803; 87040; 87077; 87340; 87806; 90937; A4606; A4663; A6209; A6213; C1758; G0378; J1815; J2185; J2270; J2405; J2470; J3370; J3475; J3480; J3490; J7040; J7042; J7050; J7131; P9047